=== PATIENT | female | born 1970 | race Caucasian/White ===

== ENCOUNTER 2025-08-22 11:37 | Day surgery (SDC) | payer BC ==
[~2025-08-22 11:37] MED LIST: Propofol 200 MG/20 ML SDV ONE; fentaNYL 100 MCG/2 ML SDV ONE
[2025-08-22] MEDS: Lactated Ringers 1,000 ML IV SCH (12:20)
[2025-08-22] MEDS ORDERED: Propofol 200 MG/20 ML SDV ONE (14:07)
== END 2025-08-22 15:02 | disposition home or self-care (01) ==
LOC: VM.SDS 11:37
PROVIDERS: ATTEND Family Medicine
DX: Z12.11 Encounter for screening for malignant neoplasm of colon (principal); K62.1 Rectal polyp; K57.30 Diverticulosis of large intestine without perforation or abscess without bleeding; E78.00 Pure hypercholesterolemia, unspecified; Z80.0 Family history of malignant neoplasm of digestive organs; Z88.8 Allergy status to other drugs, medicaments and biological substances; Z79.899 Other long term (current) drug therapy; Z87.891 Personal history of nicotine dependence; Z86.0102 Personal history of hyperplastic colon polyps
CPT/HCPCS: 00811; 45380; A9270; J2704; J3010; J7120